=== PATIENT | female | born 1965 | race Hispanic/Latino ===

== ENCOUNTER 2022-10-10 14:29 | Emergency (ER) | payer OTHER ==
[~2022-10-10] VITALS: Ht 154.9 cm; Wt 68.0 kg
[2022-10-10 14:42] VITALS: BP 168/72
[2022-10-10] MEDS ORDERED: KETOROLAC 15MG/ML VIAL (15MG/ML) IM ONE (15:30)
[2022-10-10] MEDS ORDERED: KETO10TA2 PO (17:15)
[2022-10-10] MEDS ORDERED: METH-811 PO (17:15)
== END 2022-10-10 17:49 | disposition home or self-care (01) ==
LOC: EDH 14:29
DX: S39.012A Strain of muscle, fascia and tendon of lower back, initial encounter (principal); Z90.89 Acquired absence of other organs; Z90.710 Acquired absence of both cervix and uterus; X58.XXXA Exposure to other specified factors, initial encounter; Y93.89 Activity, other specified; Y92.89 Other specified places as the place of occurrence of the external cause; Y99.8 Other external cause status
CPT/HCPCS: 99284; 71045; 72040; 72100; 96372; J1885